=== PATIENT | female | born 1980 | race Caucasian/White ===

== ENCOUNTER 2019-02-03 19:35 | Emergency (ER) | payer MEDICARE, OTHER ==
[~2019-02-03] VITALS: Ht 165.1 cm; Wt 57.4 kg
[~2019-02-03 19:35] MED LIST: MOTRIN IB200 MG PO; PERCOCET 5-3251 EACH PO
[2019-02-03] MEDS ORDERED: IBUPROFEN400 MG PO (20:59)
== END 2019-02-03 21:19 | disposition home or self-care (01) ==
LOC: ED 19:35
DX: J20.9 Acute bronchitis, unspecified (principal)
CPT/HCPCS: 71046; 81001; 84703; 99285-25

== ENCOUNTER 2023-08-25 13:56 | Emergency (ER) | payer MEDICARE, OTHER ==
[~2023-08-25] VITALS: Ht 165.1 cm; Wt 60.2 kg
[~2023-08-25 13:56] MED LIST changes: +IBUPROFEN400 MG PO
[2023-08-25] MEDS ORDERED: ACETAMINOPHEN 325 MG TAB PO ONE (14:45)
[2023-08-25] MEDS ORDERED: IBUPROFEN 400 MG TAB PO ONE (14:45)
[2023-08-25 14:54] VITALS: BP 121/89
== END 2023-08-25 14:55 | disposition home or self-care (01) ==
LOC: ED 13:56
DX: S63.502A Unspecified sprain of left wrist, initial encounter (principal); W18.30XA Fall on same level, unspecified, initial encounter
CPT/HCPCS: 73110; 99283-25; A9270